=== PATIENT | female | born 1995 | race Caucasian/White ===

== ENCOUNTER 2017-06-13 12:48 | Emergency (ER) | payer BC | END 2017-06-13 15:26 | disposition home or self-care (01) | LOC: FTE 12:48 | DX: H57.8 Other specified disorders of eye and adnexa (principal) | CPT/HCPCS: 99283 ==

== ENCOUNTER 2017-08-17 13:17 | Emergency (ER) | payer BC | END 2017-08-17 14:25 | disposition home or self-care (01) | LOC: E/R 13:17 | DX: F41.9 Anxiety disorder, unspecified (principal) | CPT/HCPCS: 99282 ==

== ENCOUNTER 2017-11-25 16:59 | Emergency (ER) | payer SELFPAY, BC | END 2017-11-25 19:07 | disposition home or self-care (01) | LOC: FTE 16:59 | DX: R07.81 Pleurodynia (principal) | CPT/HCPCS: 71100; 73030; 99284-25 ==